=== PATIENT | female | born 1935 | race Caucasian/White ===

== ENCOUNTER 2018-11-09 21:48 | Inpatient (IN) ==
--- NOTE | 2018-11-09 22:05 | ERNOTE ---
Fever HPI - General Chief Complaint: Fever Stated Complaint: FEVER Time Seen by Provider: 11/09/18 21:54 Source: EMS Exam Limitations: clinical condition - Immunization Immunizations: IMMUNIZATION HX Immunizations Up to Date unk - History of Present Illness Initial Comments: Patient resides at [facility] was found today have fever and altered mental status she was brought to the emergency room by EMS for further evaluation. Upon arrival at the long-term patient had O2 saturations in the low 80s. She was placed on 4 L per nasal cannula and is in the low 90s upon arrival, patient is unable to give any information. Timing/Duration: this evening Allergies iodine Allergy (Verified 11/09/18 21:59) Penicillins Allergy (Verified 11/09/18 21:59) Home Medications Medication Instructions Recorded Last Taken Acetaminophen [Tylenol] 650 mg PO Q4H PRN 02/01/15 Unknown Diphenoxylate HCl/Atrop Sulf 5 mg PO QID PRN 02/01/15 Unknown [Lomotil] Mirtazapine [Remeron] 15 mg PO HS 02/01/15 Unknown Multivitamin [Animal Shapes] 1 ea PO DAILY 02/01/15 Unknown OLANZapine [Zyprexa Zydis] 5 mg PO HS 02/01/15 Unknown Omeprazole [Prilosec] 20 mg PO HS 02/01/15 Unknown Levothyroxine Sodium [Unithroid] 150 mcg PO DAILY 12/03/15 Unknown Sertraline HCl [Zoloft] 50 mg PO DAILY 12/03/15 Unknown Mag Hydrox/Aluminum Hyd/Simeth 20 ml PO QID PRN 12/04/15 Unknown [Maalox] aspirin 81 mg chewable tablet 81 mg PO DAILY 06/24/18 Unknown chlorhexidine gluconate 0.12 % 1 applic MUCOUS MEMBRANE BID #473 06/24/18 Unknown mouthwash ml magnesium hydroxide 400 mg/5 mL 2,400 mg PO DAILY PRN ml 06/24/18 Unknown oral suspension saliva stimulant combination no.7 ea MUCOUS MEMBRANE HS g 06/24/18 Unknown oral mucosal gel sennosides 8.6 mg tablet 17.2 mg PO BID tab 06/24/18 Unknown simvastatin 40 mg tablet 40 mg PO HS #26 tab 06/24/18 Unknown sodium fluoride 1.1 % dental cream 1 applic DT BID g 06/24/18 Unknown tramadol 50 mg tablet 50 mg PO QID 06/24/18 Unknown alprazolam 0.5 mg tablet 0.5 mg PO BID #56 tab 07/24/18 Unknown alprazolam 1 mg tablet 1 mg PO HS #28 tab 07/24/18 Unknown hydrocortisone 1 % topical cream 1 applic TP QID PRN 07/24/18 Unknown hydrocortisone 2.5 % topical 1 applic TP BID PRN 07/24/18 Unknown ointment miconazole nitrate 2 % topical 1 applic TP BID 07/24/18 Unknown cream ketotifen 0.025 % (0.035 %) eye 1 drp OP BID #10 ml 09/07/18 Unknown drops miconazole nitrate 2 % topical 1 applic TP BID #15 g 11/03/18 Unknown cream Review of Systems - Narrative Narrative: ROS unable to be obtained due to patient's decreased mental status Fever EXAM - Physical Exam General Appearance: Present: WD/WN, lethargic Neck: Present: normal inspection Respiratory: Present: lungs clear, normal breath sounds - Anteriorly, no accessory muscle use Cardiovascular/Chest: Present: regular rate, rhythm, no murmur Gastrointestinal/Abdominal: Present: normal bowel sounds. Absent: distended, guarding Extremity: Present: no pedal edema Neurologic: Present: other - Altered mental status patient responds to verbal and mild tactile stimuli with just moans. Skin Exam: Present: normal color, warm/dry ED Progress - PROGRESS/REASSESSMENT Condition: Unchanged Progress Note-Subjective: 11/10/18 01:[address] Macdonald he agrees with admission full anticoagulation in case she does have a PE and antibiotic coverage for possible pneumonia. - VITAL SIGNS Patient's Vital Signs:: I have reviewed the patient's vital signs. - RESULTS AND ORDERS Patient's Lab Results:: I have reviewed the patient's lab results. Results and Orders: 11/10/18 01:36 Laboratory Tests 11/09/18 11/09/18 11/09/18 22:14 22:14 22:14 WBC 7.9 Hgb 11.7 L Hct 37.1 Plt Count 178 D-Dimer 2.35 H Sodium 148 H Potassium 3.4 Chloride 108 H BUN 39 H D Creatinine 1.13 Random Glucose 93 Calcium 9.3 Total Bilirubin 0.8 AST 44 ALT 41 Alkaline Phosphatase 158 Troponin I Less than 0.017 B-Natriuretic Peptide 302 - EKG EKG #1 EKG: NSR EKG Read: Interp. by me - X-Ray X-Ray #1 XRAY: chest X-Ray Interpretation: Interp. by me X-Ray Comments: Possible infiltrate LLL, no pulm edema or effusion. Departure - Departure Clinical Impression: Hypoxia, Elevated d-dimer Disposition: Still a patient Condition: Stable
[2018-11-09 22:19] LABS: Hematocrit 37.1 % (37.0-47.0); Hemoglobin 11.7 gm/dL (12.5-16.0); Mean Cell Volume 94.2 fl (78-100); Mean Corpuscular Hemoglobin 29.7 pg (27-31); Mean Corpuscular Hgb Conc 31.5 g/dl (32-36); Mean Platelet Volume 9.9 fl (8-12.5); Platelet Count 178 K/mm3 (150-450); Red Blood Count 3.94 M/mm3 (4.2-5.4); Red Cell Distribution Width 14.6 % (11.5-14.0); White Blood Count 7.9 K/mm3 (4.0-10.5)
[2018-11-09 22:22] LABS: Total Cells Counted 100
[2018-11-09 22:45] LABS: ALT 41 U/L (19-67); AST 44 U/L (0-48); Albumin * 2.7 gm/dl (3.4-5.0); Alkaline Phosphatase * 158 U/L (50-170); Anion Gap 16.8 mmol/L (6.8-13.8); BNP * 302 pg/mL (5-550); BUN/Creatinine Ratio 34.5 (9.0-21.6); Bilirubin, Total 0.8 mg/dL (0.0-1.1); Blood Urea Nitrogen 39 mg/dL (3-23); Calcium * 9.3 mg/dL (7.9-10.9); Carbon Dioxide 26.6 mmol/L (24-32.6); Chloride 108 mmol/L (97-106); Glucose * 93 mg/dL (70-110); Potassium 3.4 mmol/L (3.4-4.6); Sodium 148 mmol/L (132-142); Total Protein 7.6 gm/dL (6.2-8.2); Troponin I Less than 0.017 ng/mL (0.00-0.10)
[2018-11-09 22:52] LABS: Atypical (Reactive) Lymph 1 % (0-2); Band 7 % (0-2.0); Basophil 1 % (0-1); Dohle Bodies 1+; Immature Granulocyte 1 (0-1); Lymphocyte 17 % (20-51); Monocyte 7 % (0-9); Neutrophil 66 % (42-75); Neutrophil # 5.2 K/mm3 (1.3-6.0); Toxic Granulation 1+
[2018-11-10] MEDS ORDERED: ENOXAPARIN SODIUM 30 MG/0.3 ML SYRG SC ONE (00:54)
[2018-11-10] MEDS ORDERED: AZITHROMYCIN 500 MG in DEXTROSE 5 % IN WATER 250 ML IV ONE ×2 (01:11)
[2018-11-10] MEDS ORDERED: DIPHENOXYLATE HCL/ATROP SULF 2.5 MG TABLET PO PRN (09:07)
[2018-11-10] MEDS ORDERED: ACETAMINOPHEN 325 MG TABLET PO PRN (09:07)
[2018-11-10] MEDS ORDERED: MAG HYDROX/ALUMINUM HYD/SIMETH 30 ML UDC PO PRN (09:07)
[2018-11-10] MEDS ORDERED: MAGNESIUM HYDROXIDE 30 ML UDC PO PRN (09:07)
[2018-11-10] MEDS: PHENIRAMINE OP SCH ×2 (10:05→21:23)
[2018-11-10] MEDS: NAPHAZOLINE HCL OP SCH ×2 (10:05→21:23)
[2018-11-10] MEDS: ASPIRIN 81 MG TAB.CHEW PO SCH (10:05)
[2018-11-10] MEDS: SENNOSIDES 8.6 MG TABLET PO SCH ×2 (10:06→21:24)
[2018-11-10] MEDS: PANTOPRAZOLE SODIUM 20 MG TABLET.DR PO SCH ×2 (10:06→21:24)
[2018-11-10] MEDS: LEVOTHYROXINE SODIUM 150 MCG TABLET PO SCH (10:06)
[2018-11-10] MEDS: SERTRALINE HCL 100 MG TABLET PO SCH (10:07)
[2018-11-10] MEDS: MULTIVITAMINS 1 TAB TAB.CHEW PO SCH (10:07)
[2018-11-10] MEDS: traMADol HCL 50 MG TABLET PO SCH ×4 (10:09→21:28)
[2018-11-10] MEDS: ALPRAZolam 0.5 MG TABLET PO SCH ×2 (10:09→21:24)
[2018-11-10] MEDS: LEVOFLOXACIN 750 MG TABLET PO SCH (12:38)
[2018-11-10] MEDS: [UNRECOGNIZED DRUG - OTHER] DT SCH (21:23)
[2018-11-10] MEDS: CHLORHEXIDINE GLUCONATE 480 ML BTL PO SCH (21:23)
[2018-11-10] MEDS: PREVIDENT DT SCH (21:23)
[2018-11-10] MEDS: MIRTAZAPINE 15 MG TABLET PO SCH (21:24)
[2018-11-10] MEDS: [UNRECOGNIZED DRUG - OTHER] Mucous Membrane SCH (21:24)
[2018-11-10] MEDS: ALPRAZolam 1 MG TABLET PO SCH (21:24)
[2018-11-10] MEDS: SIMVASTATIN 40 MG TABLET PO SCH (21:25)
[2018-11-10] MEDS: OLANZapine 5 MG TABLET PO SCH (21:25)
[2018-11-11] MEDS: ENOXAPARIN SODIUM 40 MG/0.4 ML SYRG SC SCH (01:11)
[2018-11-11] MEDS: LEVOTHYROXINE SODIUM 150 MCG TABLET PO SCH (07:19)
--- NOTE | 2018-11-11 08:21 | HP ---
Chief Complaint - Chief Complaint Date of Service: 11/10/18 Time of Service: 09:00 Chief Complaint: Fever, hypoxia History of Present Illness: Mara is an 82yo female with dementia, a resident at [facility] who had fever and hypoxia. Her oxygen dropped to 80% and she was placed on oxygen. She had a cough. She was presented to [facility] ER for evaluation due to her acute change. She had a chest xray that appeared clear. She has a harsh productive sounding cough, but is unable to cough up phlegm. She required 4lpm to keep oxygen saturation >90%. She is not conversing and I am unaware of her baseline condition other than she chronically has dementia. Medical History (Updated 11/11/18 @ 08:36 by Jamel Macdonald DO) Irritable bowel syndrome (IBS) (Chronic) GERD (gastroesophageal reflux disease) (Chronic) Fructose intolerance (Chronic) Dementia (Chronic) Alzheimer's dementia (Chronic) Atherosclerosis Hyperlipidemia Surgical History: Surgical History (Updated 11/11/18 @ 08:20 by Jamel Macdonald DO) History of appendectomy History of cataract surgery History of colostomy History of esophagogastroduodenoscopy (EGD) History of hemiarthroplasty of left hip History of hysterectomy Social History: Patient Lives/Resources [facility] Utilized Preferred Language Hungarian Do you have any orthodox or No: unknown cultural preference? Smoking Status Unknown if ever smoked Have you smoked in the past 12 No months Psych History No pertinent hx (Last Reviewed 11/03/18 @ 13:02 by MOSHE Santos) No Social History Section defined Review Of Systems (GEN) - Review of Systems Additional Comments: Unobtainable due to patient condition. Immunizations: IMMUNIZATION HX Immunizations Up to Date unk Allergies/Adverse Reactions: Allergies Allergy/AdvReac Type Severity Reaction Status Date / Time iodine Allergy Verified 11/09/18 21:59 Penicillins Allergy Verified 11/09/18 21:59 shellfish derived Allergy Verified 11/10/18 02:29 Home Medications: HOME MEDICATIONS Acetaminophen [Tylenol] 650 mg PO Q4H PRN 02/01/15 [Last Taken Unknown] Diphenoxylate HCl/Atrop Sulf [Lomotil] 5 mg PO QID PRN 02/01/15 [Last Taken Unknown] Mirtazapine [Remeron] 15 mg PO HS 08/19/15 [Last Taken Unknown] Multivitamin [Animal Shapes] 1 ea PO DAILY 02/01/15 [Last Taken Unknown] OLANZapine [Zyprexa Zydis] 5 mg PO HS 02/01/15 [Last Taken Unknown] Omeprazole [Prilosec] 20 mg PO BID 02/01/15 [Last Taken Unknown] Levothyroxine Sodium [Unithroid] 150 mcg PO DAILY 12/03/15 [Last Taken Unknown] Sertraline HCl [Zoloft] 100 mg PO DAILY 12/03/15 [Last Taken Unknown] Mag Hydrox/Aluminum Hyd/Simeth [Maalox] 20 ml PO QID PRN 12/04/15 [Last Taken Unknown] aspirin 81 mg chewable tablet 81 mg PO DAILY 06/24/18 [Last Taken Unknown] chlorhexidine gluconate 0.12 % mouthwash 1 applic MUCOUS MEMBRANE BID #473 ml 06/24/18 [Last Taken Unknown] magnesium hydroxide 400 mg/5 mL oral suspension 2,400 mg PO DAILY PRN ml 06/24/18 [Last Taken Unknown] saliva stimulant combination no.7 oral mucosal gel 1 ea MUCOUS MEMBRANE HS g 06/24/18 [Last Taken 11/09/18] sennosides 8.6 mg tablet 17.2 mg PO BID tab 06/24/18 [Last Taken Unknown] simvastatin 40 mg tablet 40 mg PO HS #26 tab 06/24/18 [Last Taken Unknown] sodium fluoride 1.1 % dental cream 1 applic DT BID g 06/24/18 [Last Taken Unknown] tramadol 50 mg tablet 50 mg PO QID 06/24/18 [Last Taken Unknown] alprazolam 0.5 mg tablet 0.5 mg PO BID #56 tab 07/24/18 [Last Taken Unknown] alprazolam 1 mg tablet 1 mg PO HS #28 tab 07/24/18 [Last Taken Unknown] ketotifen 0.025 % (0.035 %) eye drops 1 drp OP BID #10 ml 09/07/18 [Last Taken Unknown] Exam - Exam Vital Signs: Vital Signs - Last Taken Temp 36.8 C 11/11/18 06:00 Pulse 83 11/11/18 06:00 Resp 20 11/11/18 06:00 BP 132/54 11/11/18 06:00 Pulse Ox 93 11/11/18 07:00 Constitutional: Present: Somnolent, Other - Patient does awaken to speak, words are difficult to understand as patient mostly mumbles Respiratory: Present: decreased breath sounds Cardiovascular/Chest: Present: regular rate, rhythm, no murmur Peripheral Pulses: radial (R): 2+, radial (L): 2+ Abdomen: Present: Normal bowel sounds, soft, nontender, nondistended Skin Exam: Present: normal color, warm/dry, no cyanosis Lymphatic: Present: no adenopathy Neurologic: Present: disoriented x 3, other - moves all extremities spontaneously Diagnostic Studies: Microbiology 11/10/18 06:26 - Final Nares MRSA Negative 11/09/18 22:14 Blood Culture - Preliminary Blood NO GROWTH 24 HOURS 11/09/18 22:14 Blood Culture - Preliminary Blood NO GROWTH 24 HOURS Laboratory Results WBC 7.9 K/mm3 (4.0-10.5) 11/09/18 22:14 RBC 3.94 M/mm3 (4.2-5.4) L 11/09/18 22:14 Hgb 11.7 gm/dL (12.5-16.0) L 11/09/18 22:14 Hct 37.1 % (37.0-47.0) 11/09/18 22:14 MCV 94.2 fl (78-100) 11/09/18 22:14 MCH 29.7 pg (27-31) 11/09/18 22:14 MCHC 31.5 g/dl (32-36) L 11/09/18 22:14 RDW 14.6 % (11.5-14.0) H 11/09/18 22:14 Plt Count 178 K/mm3 (150-450) 11/09/18 22:14 MPV 9.9 fl (8-12.5) 11/09/18 22:14 66 % (42-75) 11/09/18 22:14 Band Neuts % (Manual) 7 % (0-2.0) H 11/09/18 22:14 17 % (20-51) L 11/09/18 22:14 7 % (0-9) 11/09/18 22:14 1 % (0-1) 11/09/18 22:14 1 (0-1) 11/09/18 22:14 5.2 K/mm3 (1.3-6.0) 11/09/18 22:14 1.3 k/mm3 (1.5-3.5) L 11/09/18 22:14 0.6 k/mm3 (0.0-1.0) 11/09/18 22:14 0.1 k/mm3 (0.0-0.1) 11/09/18 22:14 Atypic/Reactive Lymphs 1 % (0-2) 11/09/18 22:14 1+ 11/09/18 22:14 1+ 11/09/18 22:14 1+ 11/09/18 22:14 2.35 ug/mL (0.19-0.49) H 11/09/18 22:14 Sodium 148 mmol/L (132-142) H 11/09/18 22:14 148 mmol/L (130-142) H 11/09/18 22:14 Potassium 3.4 mmol/L (3.4-4.6) 11/09/18 22:14 Chloride 108 mmol/L (97-106) H 11/09/18 22:14 Carbon Dioxide 26.6 mmol/L (24-32.6) 11/09/18 22:14 16.8 mmol/L (6.8-13.8) H 11/09/18 22:14 BUN 39 mg/dL (3-23) H D 11/09/18 22:14 1.13 mg/dL (0.4-1.4) 11/09/18 22:14 Est GFR (Non-Af Amer) 49 mL/min (60-130) L D 11/09/18 22:14 34.5 (9.0-21.6) H 11/09/18 22:14 93 mg/dL (70-110) 11/09/18 22:14 Calcium 9.3 mg/dL (7.9-10.9) 11/09/18 22:14 Calcium Adj for Albumin 10.0 mg/dL (8.4-10.2) 11/09/18 22:14 0.8 mg/dL (0.0-1.1) 11/09/18 22:14 AST 44 U/L (0-48) 11/09/18 22:14 ALT 41 U/L (19-67) 11/09/18 22:14 158 U/L (50-170) 11/09/18 22:14 Less than 0.017 ng/mL (0.00-0.10) 11/09/18 22:14 B-Natriuretic Peptide 302 pg/mL (5-550) 11/09/18 22:14 7.6 gm/dL (6.2-8.2) 11/09/18 22:14 2.7 gm/dl (3.4-5.0) L 11/09/18 22:14 Assessment/Plan - Narrative Narrative: Mara is an 82 yo female with acute respiratory failure on room air. She was 80% on room air and required 4lpm to keep oxygen saturation >90%. She does not use oxygen at home. Differential cause is pneumonia, bronchitis, PE. Based on her raspy and course cough I suspect her problem is mucus related from infection, more likely bronchitis vs pneumonia. Initial chest xray is negative for pneumonia but this may be early. She has no leukocytosis but this response may be blunted in the elderly. I will treat with levaquin to cover pneumonia and bronchitis. Will attempt to wean off oxygen as able. Consideration for PE, but she does not appear in pain and has not reported chest pain. She has no leg swelling. Due to acute respiratory failure and need to wean from oxygen with treatment expect >2 midnights. Will admit to acute inpatient status. - Assessment/Plan (1) Acute respiratory failure with hypoxia Problem: Acute (2) Bronchitis Problem: Acute
[2018-11-11 08:46] LABS: Hematocrit 37.6 % (37.0-47.0); Hemoglobin 11.7 gm/dL (12.5-16.0); Mean Cell Volume 95.4 fl (78-100); Mean Corpuscular Hemoglobin 29.7 pg (27-31); Mean Corpuscular Hgb Conc 31.1 g/dl (32-36); Mean Platelet Volume 10.3 fl (8-12.5); Platelet Count 206 K/mm3 (150-450); Red Blood Count 3.94 M/mm3 (4.2-5.4); Red Cell Distribution Width 14.6 % (11.5-14.0); White Blood Count 6.4 K/mm3 (4.0-10.5)
[2018-11-11 08:48] LABS: Total Cells Counted 100
[2018-11-11 08:50] LABS: Albumin * 2.3 gm/dl (3.4-5.0); Anion Gap 16.3 mmol/L (6.8-13.8); BUN/Creatinine Ratio 22.6 (9.0-21.6); Bilirubin, Total 1.1 mg/dL (0.0-1.1); Ca. Corrected For Albumin 10.2 mg/dL (8.4-10.2); Calcium * 9.2 mg/dL (7.9-10.9); Carbon Dioxide 26.1 mmol/L (24-32.6); Potassium 3.4 mmol/L (3.4-4.6); Total Protein 7.2 gm/dL (6.2-8.2)
[2018-11-11 09:08] LABS: Atypical (Reactive) Lymph 3 % (0-2); Band 1 % (0-2.0); Eosinophil 3 % (0-3); Lymphocyte 13 % (20-51); Monocyte 5 % (0-9); Neutrophil 75 % (42-75); Neutrophil # 4.8 K/mm3 (1.3-6.0)
[2018-11-11 09:09] LABS: Platelet Estimate Normal (NORMAL)
[2018-11-11 09:12] LABS: Dohle Bodies Trace; RBC Morphology Normal (NORMAL); Toxic Granulation Trace
[2018-11-11] MEDS: PHENIRAMINE OP SCH ×2 (09:23→21:30)
[2018-11-11] MEDS: NAPHAZOLINE HCL OP SCH ×2 (09:23→21:30)
[2018-11-11] MEDS: traMADol HCL 50 MG TABLET PO SCH ×4 (09:23→21:29)
[2018-11-11] MEDS: ALPRAZolam 0.5 MG TABLET PO SCH ×2 (09:23→21:29)
[2018-11-11] MEDS: SERTRALINE HCL 100 MG TABLET PO SCH (09:24)
[2018-11-11] MEDS: ASPIRIN 81 MG TAB.CHEW PO SCH (09:24)
[2018-11-11] MEDS: SENNOSIDES 8.6 MG TABLET PO SCH ×2 (09:24→21:30)
[2018-11-11] MEDS: MULTIVITAMINS 1 TAB TAB.CHEW PO SCH (09:24)
[2018-11-11] MEDS: CHLORHEXIDINE GLUCONATE 480 ML BTL PO SCH ×2 (09:24→21:29)
[2018-11-11] MEDS: PANTOPRAZOLE SODIUM 20 MG TABLET.DR PO SCH ×2 (09:24→21:30)
[2018-11-11] MEDS: PREVIDENT DT SCH ×2 (09:33→21:31)
[2018-11-11] MEDS: [UNRECOGNIZED DRUG - OTHER] DT SCH ×2 (09:33→21:31)
[2018-11-11] MEDS: DEXTROSE 5%-0.5 NORMAL SALINE 1,000 ML IV PRN (09:39)
[2018-11-11] MEDS: LEVOFLOXACIN 750 MG TABLET PO SCH (12:05)
[2018-11-11] MEDS: SIMVASTATIN 40 MG TABLET PO SCH (21:29)
[2018-11-11] MEDS: ALPRAZolam 1 MG TABLET PO SCH (21:29)
[2018-11-11] MEDS: MIRTAZAPINE 15 MG TABLET PO SCH (21:30)
[2018-11-11] MEDS: [UNRECOGNIZED DRUG - OTHER] Mucous Membrane SCH (21:31)
[2018-11-11] MEDS: OLANZapine 5 MG TABLET PO SCH (21:31)
--- NOTE | 2018-11-11 23:44 | PN ---
Subjective - Date and Time Seen Date: 11/11/18 Time: 10:00 Objective - Vitals Vitals: Last Vital Signs Temp 37.3 C 11/11/18 20:10 Pulse 85 11/11/18 20:10 Resp 20 11/11/18 20:10 BP 134/56 11/11/18 20:10 Pulse Ox 95 11/11/18 20:10 - Abnormal Lab Findings Abnormal Lab Findings: Abnormal Lab Results 11/11/18 11/11/18 Range/Units 08:19 08:19 RBC 3.94 L (4.2-5.4) M/mm3 Hgb 11.7 L (12.5-16.0) gm/dL MCHC 31.1 L (32-36) g/dl RDW 14.6 H (11.5-14.0) % Lymphocytes % (Manual) 13 L (20-51) % Lymphocytes # (Manual) 0.8 L (1.5-3.5) k/mm3 Atypic/Reactive Lymphs 3 H (0-2) % Sodium 151 H (132-142) mmol/L Plasma Sodium 152 H (130-142) mmol/L Chloride 112 H (97-106) mmol/L Anion Gap 16.3 H (6.8-13.8) mmol/L BUN 24 H (3-23) mg/dL Est GFR (Non-Af Amer) 53 L (60-130) mL/min BUN/Creatinine Ratio 22.6 H (9.0-21.6) Random Glucose 154 H D (70-110) mg/dL AST 254 H (0-48) U/L ALT 167 H (19-67) U/L Alkaline Phosphatase 290 H (50-170) U/L Albumin 2.3 L (3.4-5.0) gm/dl Assessment/Plan - Problems/Diagnosis (1) Acute respiratory failure with hypoxia Problem: Acute (2) Bronchitis Problem: Acute
[2018-11-12] MEDS: DEXTROSE 5%-0.5 NORMAL SALINE 1,000 ML IV PRN ×2 (00:12→14:36)
[2018-11-12] MEDS: ENOXAPARIN SODIUM 40 MG/0.4 ML SYRG SC SCH (00:35)
[2018-11-12] MEDS: LEVOTHYROXINE SODIUM 150 MCG TABLET PO SCH (07:23)
[2018-11-12] MEDS: traMADol HCL 50 MG TABLET PO SCH ×4 (08:38→20:55)
[2018-11-12] MEDS: PANTOPRAZOLE SODIUM 20 MG TABLET.DR PO SCH ×2 (08:38→20:47)
[2018-11-12] MEDS: SENNOSIDES 8.6 MG TABLET PO SCH ×2 (08:38→20:46)
[2018-11-12] MEDS: CHLORHEXIDINE GLUCONATE 480 ML BTL PO SCH ×2 (08:38→20:48)
[2018-11-12] MEDS: PREVIDENT DT SCH ×2 (08:39→20:49)
[2018-11-12] MEDS: ASPIRIN 81 MG TAB.CHEW PO SCH (08:39)
[2018-11-12] MEDS: ALPRAZolam 0.5 MG TABLET PO SCH ×2 (08:39→20:55)
[2018-11-12] MEDS: MULTIVITAMINS 1 TAB TAB.CHEW PO SCH (08:39)
[2018-11-12] MEDS: NAPHAZOLINE HCL OP SCH ×2 (08:39→20:48)
[2018-11-12] MEDS: [UNRECOGNIZED DRUG - OTHER] DT SCH ×2 (08:39→20:49)
[2018-11-12] MEDS: SERTRALINE HCL 100 MG TABLET PO SCH (08:39)
[2018-11-12] MEDS: PHENIRAMINE OP SCH ×2 (08:39→20:48)
[2018-11-12 09:19] LABS: Hematocrit 37.6 % (37.0-47.0); Hemoglobin 11.7 gm/dL (12.5-16.0); Mean Cell Volume 95.9 fl (78-100); Mean Corpuscular Hemoglobin 29.8 pg (27-31); Mean Corpuscular Hgb Conc 31.1 g/dl (32-36); Mean Platelet Volume 10.2 fl (8-12.5); Neutrophil # 5.4 K/mm3 (1.3-6.0); Neutrophil % 68.6 % (42-75.0); Platelet Count 240 K/mm3 (150-450); Red Blood Count 3.92 M/mm3 (4.2-5.4); Red Cell Distribution Width 14.7 % (11.5-14.0); White Blood Count 7.9 K/mm3 (4.0-10.5)
[2018-11-12 09:27] LABS: Albumin * 2.2 gm/dl (3.4-5.0); Anion Gap 14.1 mmol/L (6.8-13.8); BUN/Creatinine Ratio 15.2 (9.0-21.6); Bilirubin, Total 0.7 mg/dL (0.0-1.1); Ca. Corrected For Albumin 10.1 mg/dL (8.4-10.2); Carbon Dioxide 26.2 mmol/L (24-32.6); Potassium 3.3 mmol/L (3.4-4.6); Total Protein 7.1 gm/dL (6.2-8.2)
[2018-11-12] MEDS: LEVOFLOXACIN 750 MG TABLET PO SCH (10:57)
[2018-11-12] MEDS: SIMVASTATIN 40 MG TABLET PO SCH (20:47)
[2018-11-12] MEDS: OLANZapine 5 MG TABLET PO SCH (20:48)
[2018-11-12] MEDS: MIRTAZAPINE 15 MG TABLET PO SCH (20:48)
[2018-11-12] MEDS: [UNRECOGNIZED DRUG - OTHER] Mucous Membrane SCH (20:49)
[2018-11-12] MEDS: ALPRAZolam 1 MG TABLET PO SCH (20:55)
--- NOTE | 2018-11-12 23:57 | PN ---
Subjective - Date and Time Seen Date: 11/12/18 Time: 23:57 Objective - Vitals Vitals: Last Vital Signs Temp 37.5 C 11/12/18 22:00 Pulse 94 11/12/18 20:00 Resp 18 11/12/18 19:30 BP 108/67 11/12/18 19:30 Pulse Ox 93 11/12/18 19:30 - Abnormal Lab Findings Abnormal Lab Findings: Abnormal Lab Results 11/12/18 11/12/18 Range/Units 08:30 08:30 RBC 3.92 L (4.2-5.4) M/mm3 Hgb 11.7 L (12.5-16.0) gm/dL MCHC 31.1 L (32-36) g/dl RDW 14.7 H (11.5-14.0) % Immature Gran % (Auto) 1.80 H (0.001-0.429) % Immature Gran # (Auto) 0.14 H (0.000-0.0310) K/mm3 Sodium 148 H (132-142) mmol/L Plasma Sodium 148 H (130-142) mmol/L Potassium 3.3 L (3.4-4.6) mmol/L Chloride 111 H (97-106) mmol/L Anion Gap 14.1 H (6.8-13.8) mmol/L Est GFR (Non-Af Amer) 57 L (60-130) mL/min Random Glucose 120 H (70-110) mg/dL AST 195 H (0-48) U/L ALT 178 H (19-67) U/L Alkaline Phosphatase 288 H (50-170) U/L Albumin 2.2 L (3.4-5.0) gm/dl Assessment/Plan - Problems/Diagnosis (1) Acute respiratory failure with hypoxia Problem: Acute (2) Bronchitis Problem: Acute
[2018-11-13] MEDS: ENOXAPARIN SODIUM 40 MG/0.4 ML SYRG SC SCH (01:19)
[2018-11-13] MEDS: DEXTROSE 5%-0.5 NORMAL SALINE 1,000 ML IV PRN (04:57)
[2018-11-13 05:34] LABS: Hematocrit 31.8 % (37.0-47.0); Hemoglobin 9.9 gm/dL (12.5-16.0); Mean Cell Volume 95.8 fl (78-100); Mean Corpuscular Hemoglobin 29.8 pg (27-31); Mean Corpuscular Hgb Conc 31.1 g/dl (32-36); Mean Platelet Volume 10.2 fl (8-12.5); Neutrophil # 5.8 K/mm3 (1.3-6.0); Neutrophil % 70.7 % (42-75.0); Platelet Count 213 K/mm3 (150-450); Red Blood Count 3.32 M/mm3 (4.2-5.4); Red Cell Distribution Width 14.6 % (11.5-14.0); White Blood Count 8.2 K/mm3 (4.0-10.5)
[2018-11-13 05:46] LABS: Albumin * 1.8 gm/dl (3.4-5.0); Anion Gap 14.2 mmol/L (6.8-13.8); BUN/Creatinine Ratio 16.8 (9.0-21.6); Bilirubin, Total 0.5 mg/dL (0.0-1.1); Ca. Corrected For Albumin 10.1 mg/dL (8.4-10.2); Calcium * 8.7 mg/dL (7.9-10.9); Carbon Dioxide 25.9 mmol/L (24-32.6); Potassium 3.1 mmol/L (3.4-4.6); Total Protein 6.1 gm/dL (6.2-8.2)
[2018-11-13] MEDS: LEVOTHYROXINE SODIUM 150 MCG TABLET PO SCH (07:25)
[2018-11-13] MEDS ORDERED: POTASSIUM CHLORIDE 20 MEQ TABLET.SA PO ONE (08:45)
[2018-11-13] MEDS: NAPHAZOLINE HCL OP SCH (09:43)
[2018-11-13] MEDS: ASPIRIN 81 MG TAB.CHEW PO SCH (09:43)
[2018-11-13] MEDS: PHENIRAMINE OP SCH (09:43)
[2018-11-13] MEDS: SERTRALINE HCL 100 MG TABLET PO SCH (09:44)
[2018-11-13] MEDS: CHLORHEXIDINE GLUCONATE 480 ML BTL PO SCH (09:44)
[2018-11-13] MEDS: PANTOPRAZOLE SODIUM 20 MG TABLET.DR PO SCH (09:44)
[2018-11-13] MEDS: MULTIVITAMINS 1 TAB TAB.CHEW PO SCH (09:44)
[2018-11-13] MEDS: SENNOSIDES 8.6 MG TABLET PO SCH (09:44)
[2018-11-13] MEDS: [UNRECOGNIZED DRUG - OTHER] DT SCH (09:45)
[2018-11-13] MEDS: PREVIDENT DT SCH (09:45)
[2018-11-13] MEDS: traMADol HCL 50 MG TABLET PO SCH (09:55)
[2018-11-13] MEDS: ALPRAZolam 0.5 MG TABLET PO SCH (09:55)
--- NOTE | 2018-11-13 11:12 | DS ---
(1) Pneumonia Problem: Acute Qualifiers: Laterality: bilateral Lung location: lower lobe of lung (2) Acute respiratory failure with hypoxia Problem: Resolved (3) Elevated liver enzymes Problem: Acute Description of Stay: Mara is an 82 yo female with dementia, a resident of [facility]. She was admitted for acute respiratory failure secondary to suspected pneumonia. She was placed on oxygen and titrated to keep oxygen >90%. Initial chest xray did not show pneumonia but she had a significant cough and fever prior to being admitted so she was started on Levaquin. Repeat chest xray after a couple days did confirm bilateral lower lobe pneumonia. She also developed a jump in her liver enzymes. An US of her abdomen was completed but did not show any significant abnormalities. Liver enyzmes were monitored and improved. I suspect they were elevated from the adjacent inflammation of the lungs secondary to pneumonia. Over time oxygen was weaned to room air. Subjective information is difficult due to chronic dementia. She appears to have no concerns. Her bloodwork is improved, oxygen is normal on room air, and per her she is clinically near her baseline. She will be discharged back to [facility] today. She will continue antibiotics for an additional 5 days. Procedures Performed: none Results and Findings: Pending Mircobiology Results 11/09/18 22:14 Blood Blood Culture - Preliminary NO GROWTH AFTER 48 HOURS 11/09/18 22:14 Blood Blood Culture - Preliminary NO GROWTH AFTER 48 HOURS Lab Pending Results 11/09/18 22:14: WBC 7.9, RBC 3.94 L, Hgb 11.7 L, Hct 37.1, MCV 94.2, MCH 29.7, MCHC 31.5 L, RDW 14.6 H, Plt Count 178, MPV 9.9, Neutrophils % (Manual) 66, Band Neuts % (Manual) 7 H, Lymphocytes % (Manual) 17 L, Monocytes % (Manual) 7, Basophils % (Manual) 1, Immature Granulocytes 1, Neutrophils # (Manual) 5.2, Lymphocytes # (Manual) 1.3 L, Monocytes # (Manual) 0.6, Basophils # (Manual) 0.1, Atypic/Reactive Lymphs 1, Toxic Granulation 1+, Toxic Vacuolation 1+, Dohle Bodies 1+ 11/09/18 22:14: Sodium 148 H, Plasma Sodium 148 H, Potassium 3.4, Chloride 108 H, Carbon Dioxide 26.6, Anion Gap 16.8 H, BUN 39 H D, Creatinine 1.13, Est GFR (Non-Af Amer) 49 L D, BUN/Creatinine Ratio 34.5 H, Random Glucose 93, Calcium 9.3, Calcium Adj for Albumin 10.0, Total Bilirubin 0.8, AST 44, ALT 41, Alkaline Phosphatase 158, Troponin I Less than 0.017, B-Natriuretic Peptide 302, Total Protein 7.6, Albumin 2.7 L 11/09/18 22:14: D-Dimer 2.35 H 11/11/18 08:19: WBC 6.4, RBC 3.94 L, Hgb 11.7 L, Hct 37.6, MCV 95.4, MCH 29.7, MCHC 31.1 L, RDW 14.6 H, Plt Count 206, MPV 10.3, Neutrophils % (Manual) 75, Band Neuts % (Manual) 1, Lymphocytes % (Manual) 13 L, Monocytes % (Manual) 5, Eosinophils % (Manual) 3, Neutrophils # (Manual) 4.8, Lymphocytes # (Manual) 0.8 L, Monocytes # (Manual) 0.3, Eosinophils # (Manual) 0.2, Atypic/Reactive Lymphs 3 H, Toxic Granulation Trace, Dohle Bodies Trace, Platelet Estimate Normal, RBC Morphology Normal 11/11/18 08:19: Sodium 151 H, Plasma Sodium 152 H, Potassium 3.4, Chloride 112 H, Carbon Dioxide 26.1, Anion Gap 16.3 H, BUN 24 H, Creatinine 1.06, Est GFR (Non-Af Amer) 53 L, BUN/Creatinine Ratio 22.6 H, Random Glucose 154 H D, Calcium 9.2, Calcium Adj for Albumin 10.2, Total Bilirubin 1.1, AST 254 H, ALT 167 H, Alkaline Phosphatase 290 H, Total Protein 7.2, Albumin 2.3 L 11/12/18 08:30: WBC 7.9 D, RBC 3.92 L, Hgb 11.7 L, Hct 37.6, MCV 95.9, MCH 29.8, MCHC 31.1 L, RDW 14.7 H, Plt Count 240, MPV 10.2, Immature Gran % (Auto) 1.80 H, Immature Gran # (Auto) 0.14 H, Neutrophils % 68.6, Lymphocytes % 20.1, Monocytes % 7.1, Eosinophils % 2.0, Basophils % 0.4, Nucleated RBC % 0.0, Neutrophils # 5.4, Lymphocytes # 1.58, Monocytes # 0.6, Eosinophils # 0.2, Absolute Basophils 0.0 11/12/18 08:30: Sodium 148 H, Plasma Sodium 148 H, Potassium 3.3 L, Chloride 111 H, Carbon Dioxide 26.2, Anion Gap 14.1 H, BUN 15, Creatinine 0.99, Est GFR (Non- Af Amer) 57 L, BUN/Creatinine Ratio 15.2, Random Glucose 120 H, Calcium 9.0, Calcium Adj for Albumin 10.1, Total Bilirubin 0.7, AST 195 H, ALT 178 H, Alkaline Phosphatase 288 H, Total Protein 7.1, Albumin 2.2 L 11/13/18 05:16: WBC 8.2, RBC 3.32 L, Hgb 9.9 L, Hct 31.8 L, MCV 95.8, MCH 29.8, MCHC 31.1 L, RDW 14.6 H, Plt Count 213, MPV 10.2, Immature Gran % (Auto) 1.70 H, Immature Gran # (Auto) 0.14 H, Neutrophils % 70.7, Lymphocytes % 18.1 L, Monocytes % 6.8, Eosinophils % 2.3, Basophils % 0.4, Nucleated RBC % 0.0, Neutrophils # 5.8, Lymphocytes # 1.48 L, Monocytes # 0.6, Eosinophils # 0.2, Absolute Basophils 0.0 11/13/18 05:16: Sodium 145 H, Plasma Sodium 145 H, Potassium 3.1 L, Chloride 108 H, Carbon Dioxide 25.9, Anion Gap 14.2 H, BUN 16, Creatinine 0.95, Est GFR (Non- Af Amer) 60, BUN/Creatinine Ratio 16.8, Random Glucose 123 H, Calcium 8.7, Calcium Adj for Albumin 10.1, Total Bilirubin 0.5, AST 99 H, ALT 125 H, Alkaline Phosphatase 237 H, Total Protein 6.1 L, Albumin 1.8 L Discharge Location: [facility] Disposition: [facility] Condition: Stable Level of Care: SNF Discharge Activity: Activity as tolerated Discharge Diet: General/regular food [facility] Therapy: Physicial Therapy, Occupation Therapy Referrals: Abigail Knutson ARNP [Primary Care Provider] - Problem Oriented Discharge Instructions to Patient/Family: Community-Acquired Pneumonia, Adult, [id number] Prescriptions (Any new or edited meds): Levofloxacin [Levaquin] 750 mg PO DAILY@1100 #5 tab guaiFENesin [Mucinex] 1,200 mg PO BID #14 tablet.sa Complete Home Medications List: Complete Home Medication List: Acetaminophen [Tylenol] 650 mg PO Q4H PRN 02/01/15 Diphenoxylate HCl/Atrop Sulf [Lomotil] 5 mg PO QID PRN 02/01/15 Mirtazapine [Remeron] 15 mg PO HS 02/01/15 Multivitamin [Animal Shapes] 1 ea PO DAILY 02/01/15 OLANZapine [Zyprexa Zydis] 5 mg PO HS 02/01/15 Omeprazole [Prilosec] 20 mg PO BID 02/01/15 Levothyroxine Sodium [Unithroid] 150 mcg PO DAILY 12/03/15 Sertraline HCl [Zoloft] 100 mg PO DAILY 12/03/15 Mag Hydrox/Aluminum Hyd/Simeth [Maalox] 20 ml PO QID PRN 12/04/15 aspirin 81 mg chewable tablet 81 mg PO DAILY 06/24/18 chlorhexidine gluconate 0.12 % mouthwash 1 applic MUCOUS MEMBRANE BID #473 ml 06/24/18 magnesium hydroxide 400 mg/5 mL oral suspension 2,400 mg PO DAILY PRN ml 06/24/18 saliva stimulant combination no.7 oral mucosal gel 1 ea MUCOUS MEMBRANE HS g 06/24/18 sennosides 8.6 mg tablet 17.2 mg PO BID tab 06/24/18 simvastatin 40 mg tablet 40 mg PO HS #26 tab 06/24/18 sodium fluoride 1.1 % dental cream 1 applic DT BID g 06/24/18 tramadol 50 mg tablet 50 mg PO QID 06/24/18 alprazolam 0.5 mg tablet 0.5 mg PO BID #56 tab 07/24/18 alprazolam 1 mg tablet 1 mg PO HS #28 tab 07/24/18 ketotifen 0.025 % (0.035 %) eye drops 1 drp OP BID #10 ml 09/07/18 Levofloxacin [Levaquin] 750 mg PO DAILY@1100 #5 tab 05/31/19 guaiFENesin [Mucinex] 1,200 mg PO BID #14 tablet.sa 11/13/18
[2018-11-13] MEDS: LEVOFLOXACIN 750 MG TABLET PO SCH (11:57)
[2018-11-13 19:08] VITALS: BP 121/43
== END 2018-11-13 12:50 | DRG 193 ==
LOC: ER 21:48 → MS 21:48
PROVIDERS: ADMIT Family Medicine; ATTEND Family Medicine
CPT/HCPCS: 36415; 71010; 71045; 76700; 80053; 83519; 83880; 84484; 85007; 85025; 85379; 87040; 87081; 93005; 94760; 96365; 99284; G0378